=== PATIENT | female | born 1940 | race Caucasian/White ===

== ENCOUNTER 2021-03-26 14:08 | Emergency (ER) | payer OTHER ==
[~2021-03-26] VITALS: Ht 160 cm; Wt 57.6 kg
[~2021-03-26 14:08] MED LIST: ECOTRIN81 MG PO; LOPID TAB 600600 MG PO; SIMVASTATIN40 MG PO; TOPROL XL50 MG PO; ZETIA 10 MG TAB10 MG PO
[2021-03-26 15:00] LABS: HEMOGLOBIN 12.7 gm/dl (12.3-15.3); RED BLOOD COUNT 4.24 M/UL (4.00-5.10); WHITE BLOOD COUNT 5.3 K/UL (4.5-11.0)
[2021-03-26 15:25] LABS: BUN/CREATININE RATIO 14 (0-10)
[2021-03-26] MEDS ORDERED: AMLODIPINE BESYL5 MG PO (17:17)
[2021-03-26] MEDS ORDERED: LISINOPRIL10 MG PO (17:19)
[2021-03-26] MEDS ORDERED: WARFARIN SODIU7.5 MG PO (17:25)
[2021-03-26] MEDS ORDERED: VITAMIN B-1250 MCG PO (17:30)
[2021-03-26] MEDS ORDERED: DOCUSATE SODIU100 MG PO (17:31)
[2021-03-26] MEDS ORDERED: VITAMIN D250 MCG PO (17:31)
[2021-03-26] MEDS ORDERED: VITAMIN B-12 PO (17:33)
[2021-03-26] MEDS ORDERED: B-121000 MCG PO (18:59)
[2021-03-26] MEDS ORDERED: PROZAC 20 MG CA20 MG PO (19:24)
[2021-03-26] MEDS ORDERED: WARFARIN SODIUM5 MG PO (19:25)
[2021-03-27 04:23] LABS: HEMOGLOBIN 11.8 gm/dl (12.3-15.3); RED BLOOD COUNT 3.91 M/UL (4.00-5.10); WHITE BLOOD COUNT 5.1 K/UL (4.5-11.0)
[2021-03-27 04:46] LABS: BUN/CREATININE RATIO 14 (0-10)
[2021-03-27] MEDS ORDERED: PROTONIX 40 MG40 M1 PO (10:37)
== END 2021-03-27 12:49 | disposition home or self-care (01) ==
LOC: ER1 14:08 → CDU 16:16 → ER1 16:16 → CDU 03-27 12:49
PROVIDERS: Physician Assistant
DX: R07.89 Other chest pain (principal); I35.0 Nonrheumatic aortic (valve) stenosis; I10 Essential (primary) hypertension; E78.5 Hyperlipidemia, unspecified; K21.9 Gastro-esophageal reflux disease without esophagitis; R41.82 Altered mental status, unspecified; E87.6 Hypokalemia; N28.9 Disorder of kidney and ureter, unspecified; R94.31 Abnormal electrocardiogram [ECG] [EKG]; Z79.01 Long term (current) use of anticoagulants; Z87.74 Personal history of (corrected) congenital malformations of heart and circulatory system; Z86.73 Personal history of transient ischemic attack (TIA), and cerebral infarction without residual deficits; Z88.8 Allergy status to other drugs, medicaments and biological substances; Z20.822 Contact with and (suspected) exposure to COVID-19; Z90.710 Acquired absence of both cervix and uterus
CPT/HCPCS: ECHO; 70450; 71045; 80048; 80053; 82140; 82550; 82553; 82607; 83874; 84484; 85025; 85610; 85730; 93005; 93306; 99285; U0002